=== PATIENT | female | born 1995 | race Caucasian/White ===

== ENCOUNTER 2017-03-10 22:17 | Emergency (ER) | payer SELFPAY ==
[~2017-03-10] VITALS: Ht 175.3 cm; Wt 55.0 kg
[2017-03-10 22:18] VITALS: BP 151/94; PULSE 103; RESP 16; TEMP 98.9; O2SAT 100
[2017-03-10] MEDS ORDERED: SODIUM CHLOR 0.9% 1000 ML INJ 1,000 ML IV SCH (23:13)
[2017-03-10] MEDS ORDERED: ONDANSETRON HCL 4 MG/2 ML VIAL IVP ONE (23:15)
--- NOTE | 2017-03-10 23:20 | PD ---
HPI Chief Complaint: GI Complaint Time Seen by Provider: 11:08 Travel History International Travel<30 days: Yes Contact w/Intl Traveler<30days: Yes Name of Country Traveled to: [place] 2 MONTHS AGO Traveled to known affect area: No History of Present Illness HPI This is a 21-year-old otherwise healthy female who presents for evaluation of diarrhea. The patient is currently on spring from [place]. She reports that for the past 40 she's been having between 5 and 10 episodes of watery stools daily. She reports that the stools are black in color. She endorses an intermittent mild burning sensation in the epigastrium as well as nausea. Denies vomiting, fevers or chills, flank pain, dysuria, vaginal bleeding or discharge. She does admit to essentially daily alcohol use this week because she is on spring. She tried using [id number] Pepto-Bismol but symptoms persist which prompted evaluation. Denies any unusual foods prior to the start of her symptoms. She denies any recent antibiotic use. She has no other complaints. [facility] Past Medical History Medical History: Denies Significant Hx Tetanus Vaccination: Unknown Influenza Vaccination: Yes ?: Not LMP: 02/19/17 Past Surgical History Surgical History: No Previous Surgery Social History Alcohol Use: Yes (WEEKENDS BUT MORE LAST FEW WEEKS SINCE GRADUATION) Tobacco Use: No Substance Use: No Allergies-Medications (Allergen,Severity, Reaction): Coded Allergies: No Known Allergies (Unverified , 03/10/17) Reported Meds & Prescriptions Reported Meds & Active Scripts Active Zofran (Ondansetron HCl) 4 Mg Tab 4 Mg PO Q6HR PRN Imodium A-D (Loperamide HCl) 2 Mg Cap 2 Mg PO Q6H PRN Reported [ control] 1 Tab PO DAILY Review of Systems Except as stated in HPI: all other systems reviewed are Neg Physical Exam Narrative GENERAL: Well-developed well-nourished female in no acute distress SKIN: Warm and dry. HEAD: Atraumatic. Normocephalic. EYES: Pupils equal and round. No scleral icterus. No injection or drainage. ENT: No nasal bleeding or discharge. Mucous membranes pink and moist. NECK: Trachea midline. No JVD. CARDIOVASCULAR: Regular rate and rhythm. No murmur appreciated. RESPIRATORY: No accessory muscle use. Clear to auscultation. Breath sounds equal bilaterally. GASTROINTESTINAL: Abdomen soft, very mild epigastric tenderness without guarding. No right upper quadrant tenderness to palpation. No CVA tenderness. MUSCULOSKELETAL: No obvious deformities. NEUROLOGICAL: Awake and alert. No obvious cranial nerve deficits. Motor grossly within normal limits. Normal speech. PSYCHIATRIC: Appropriate mood and affect; insight and judgment normal. Data Data Last Documented VS Vital Signs Date Time Temp Pulse Resp B/P Pulse Ox O2 Delivery O2 Flow Rate FiO2 03/10/17 23:51 100 18 142/84 100 Room Air 03/10/17 22:18 98.9 Orders Complete Blood Count With Diff (03/10/17 23:13) Comprehensive Metabolic Panel (03/10/17 23:13) Lipase (03/10/17 23:13) Urinalysis - C+S If Indicated (03/10/17 23:13) Ondansetron Inj (Zofran Inj) (03/10/17 23:15) Sodium Chlor 0.9% 1000 Ml Inj (Ns 1000 M (03/10/17 23:13) Ed Urine Pregnancytest Poc (03/10/17 23:13) Pantoprazole Inj (Protonix Inj) (03/10/17 23:30) Al-Mag Hy-Si 40-40-4 Mg/Ml Liq (Mag-Al P (03/10/17 23:30) Lidocaine 2% Viscous (Xylocaine 2% Visco (03/10/17 23:30) Labs Laboratory Tests Test 03/10/17 03/10/17 23:30 23:35 Urine Color COLORLESS Urine Turbidity CLEAR Urine pH 7.5 Urine Specific [place] 1.001 Urine Protein NEG mg/dL Urine Glucose (UA) NEG mg/dL Urine Ketones NEG mg/dL Urine Occult Blood NEG Urine Nitrite NEG Urine Bilirubin NEG Urine Urobilinogen LESS THAN 2.0 MG/DL Urine Leukocyte Esterase NEG Urine RBC LESS THAN 1 /hpf Urine WBC LESS THAN 1 /hpf Urine Squamous Epithelial 2 /hpf Cells Urine Bacteria RARE /hpf Urine Mucus FEW /lpf Microscopic Urinalysis Comment CULT NOT INDICATED White Blood Count 5.7 TH/MM3 Red Blood Count 4.61 MIL/MM3 Hemoglobin 14.4 GM/DL Hematocrit 41.2 % Mean Corpuscular Volume 89.5 FL Mean Corpuscular Hemoglobin 31.2 PG Mean Corpuscular Hemoglobin 34.9 % Concent Red Cell Distribution Width 12.5 % Platelet Count 198 TH/MM3 Mean Platelet Volume 8.3 FL Neutrophils (%) (Auto) 62.6 % Lymphocytes (%) (Auto) 24.5 % Monocytes (%) (Auto) 9.6 % Eosinophils (%) (Auto) 2.6 % Basophils (%) (Auto) 0.7 % Neutrophils # (Auto) 3.6 TH/MM3 Lymphocytes # (Auto) 1.4 TH/MM3 Monocytes # (Auto) 0.5 TH/MM3 Eosinophils # (Auto) 0.1 TH/MM3 Basophils # (Auto) 0.0 TH/MM3 CBC Comment DIFF FINAL Differential Comment Sodium Level 140 MEQ/L Potassium Level 3.5 MEQ/L Chloride Level 104 MEQ/L Carbon Dioxide Level 26.6 MEQ/L Anion Gap 9 MEQ/L Blood Urea Nitrogen 6 MG/DL Creatinine 0.70 MG/DL Estimat Glomerular Filtration 105 ML/MIN Rate Random Glucose 95 MG/DL Calcium Level 9.5 MG/DL Total Bilirubin 0.5 MG/DL Aspartate Amino Transf 26 U/L (AST/SGOT) Alanine Aminotransferase 25 U/L (ALT/SGPT) Alkaline Phosphatase 70 U/L Total Protein 7.7 GM/DL Albumin 4.2 GM/DL Lipase 161 U/L MDM Medical Decision Making Medical Screen Exam Complete: Yes Emergency Medical Condition: Yes Medical Record Reviewed: Yes Differential Diagnosis Gastroenteritis, gastritis, pancreatitis, doubt melena Narrative Course 21-year-old female presents with 4 days of black watery diarrhea, some mild burning epigastric abdominal discomfort and nausea. Physical examination is reassuring. She does not appear dehydrated. She has very mild tenderness to palpation in the epigastrium. She does not appear anemic on examination I doubt that this otherwise healthy 21-year-old female is experiencing melena, likely pepto bismol effect. I did offer to do a Hemoccult test on her and she is declining. Suspect gastroenteritis. We will check basic lab work, provide IV fluids, GI cocktail and Zofran. The patient's lab work is reassuring and essentially unremarkable.. She'll be discharged with Zofran and Lomotil. Diagnosis Primary Impression: Gastroenteritis Additional Instructions: Medication as prescribed. Stay well hydrated and well-nourished. Return for any acutely new or worsening symptoms. Med/Other Pt SpecificInfo: Prescription(s) given Scripts Ondansetron (Zofran)4 Mg Tab4 Mg PO Q6HR PRN (NAUSEA OR VOMITING) #20 TAB Ref 0 Prov:Anna Contreras DO 03/11/17 Loperamide (Imodium A-D)2 Mg Cap2 Mg PO Q6H PRN (DIARRHEA) #20 CAP Ref 0 Prov:Anna Contreras DO 03/11/17 Disposition: 01 DISCHARGE HOME Condition: Stable Manjit Foss March 10, 2017 23:20
[2017-03-10] MEDS ORDERED: ALUMINUM/MAGNESIUM/SIMETH 30 ML CUP PO ONE (23:30)
[2017-03-10] MEDS ORDERED: PANTOPRAZOLE SODIUM 40 MG VIAL IVP ONE (23:30)
[2017-03-10] MEDS ORDERED: LIDOCAINE VISCOUS 2% SOLN 15 ML UDC PO ONE (23:30)
[2017-03-10] MEDS ORDERED: birth control PO (23:31)
[2017-03-10 23:51] VITALS: BP 142/84; PULSE 100; RESP 18; O2SAT 100
[2017-03-11] LABS: AUTOMATED NEUTROPHIL # 3.6 TH/MM3 (1.8-7.7); BASOPHIL % 0.7 % (0.0-2.0); EOSINOPHIL # 0.1 TH/MM3 (0-0.4); EOSINOPHIL % 2.6 % (0.0-4.0); HEMATOCRIT 41.2 % (35.0-46.0); HEMO FLAGS DIFF FINAL; LYMPH % 24.5 % (9.0-44.0); LYMPHOCYTE # 1.4 TH/MM3 (1.0-4.8); MEAN CELL VOLUME 89.5 FL (80.0-100.0); MEAN CORPUSCULAR HEMOGLOBIN 31.2 PG (27.0-34.0); MEAN CORPUSCULAR HGB CONC 34.9 % (32.0-36.0); MONO % 9.6 % (0.0-8.0); NEUT % 62.6 % (16.0-70.0); PLATELET COUNT 198 TH/MM3 (150-450); RED BLOOD COUNT 4.61 MIL/MM3 (4.00-5.30); RED CELL DISTRIBUTION WIDTH 12.5 % (11.6-17.2); WHITE BLOOD COUNT 5.7 TH/MM3 (4.0-11.0)
[2017-03-11 00:02] LABS: BACTERIA, URINE RARE /hpf; BLOOD, URINE NEG (NEG); GLUCOSE,URINE NEG (NEG); KETONE, URINE NEG (NEG); MUCUS URINE FEW /lpf (OCC); NITRITE,URINE NEG (NEG); PH, URINE 7.5 (5.0-8.5); SQUAMOUS EPITHELIAL CELL URINE 2 /hpf (0-5); URINE COLOR COLORLESS (YELLW/STRAW)
[2017-03-11 00:03] LABS: COMMENT (UR) CULT NOT INDICATED; CULTURE IF INDICATED CULT NOT INDICATED
[2017-03-11] MEDS ORDERED: LOMO2.5T PO (00:16)
[2017-03-11] MEDS ORDERED: LOPE7.5C PO (00:18)
[2017-03-11 00:20] LABS: ALT (GPT) 25 U/L (10-53); ANION GAP 9 MEQ/L (5-15); AST (GOT) 26 U/L (15-37); BICARBONATE 26.6 MEQ/L (21.0-32.0); BLOOD UREA NITROGEN 6 MG/DL (7-18); CHLORIDE 104 MEQ/L (98-107); GLOMERULAR FILTRATION RATE 105 ML/MIN (>89); POTASSIUM 3.5 MEQ/L (3.5-5.1); SODIUM (NA) 140 MEQ/L (136-145)
[2017-03-11 00:22] LABS: ALKALINE PHOSPHATASE 70 U/L (45-117); TOTAL BILIRUBIN ADULT 0.5 MG/DL (0.2-1.0)
[2017-03-11] MEDS ORDERED: ZOFR4TAB PO (00:25)
[2017-03-11 00:43] VITALS: BP 138/84
== END 2017-03-11 00:48 | disposition home or self-care (01) ==
LOC: NEPD 22:17
DX: K52.9 Noninfective gastroenteritis and colitis, unspecified (principal)
CPT/HCPCS: 80053; 81001; 83690; 84703; 85025; 96374; 96375; 99284; C9113; J2405; J7030